=== PATIENT | female | born 1965 | race Caucasian/White ===

== ENCOUNTER 2018-06-22 18:06 | Emergency (ER) | payer MEDICAID, OTHER ==
[~2018-06-22] VITALS: Ht 162.6 cm; Wt 72.6 kg
[2018-06-22 18:13] VITALS: BP_SYST 140
[2018-06-22] MEDS ORDERED: KETOROLAC TROMETHAMINE 60 MG/2 ML VIAL IM ONE (18:30)
[2018-06-22 19:06] LABS: BARBITURATE, URINE NEGATIVE (NEG <=200); URINE AMPHETAMINE POSITIVE (NEG <=500)
[2018-06-22 19:07] LABS: BENZODIAZEPINE, URINE NEGATIVE (NEG <=150); CANNABINOID, URINE POSITIVE (NEG <=50); COCAINE, URINE NEGATIVE (NEG <=150); METHAMPHETAMINES SCREEN,URINE POSITIVE (NEG <=500); OPIATE, URINE NEGATIVE (NEG <=100); PHENCYCLIDINE SCREEN,URINE NEGATIVE (NEG <=25); UR TRICYCLIC ANTIDEPRESSANTS NEGATIVE (NEG <=300); URINE METHADONE NEGATIVE (NEG <=200); URINE OXYCODONE SCREEN NEGATIVE (NEG <=100); URINE PROPOXYPHENE SCREEN NEGATIVE (NEG <=300)
[2018-06-22 19:50] VITALS: BP_SYST 130
== END 2018-06-22 19:50 | disposition home or self-care (01) ==
LOC: SED 18:06
DX: N61.0 Mastitis without abscess (principal); R03.0 Elevated blood-pressure reading, without diagnosis of hypertension; F17.210 Nicotine dependence, cigarettes, uncomplicated; Z71.6 Tobacco abuse counseling; V29.9XXA Motorcycle rider (driver) (passenger) injured in unspecified traffic accident, initial encounter; Y93.89 Activity, other specified; Y92.410 Unspecified street and highway as the place of occurrence of the external cause; Y99.8 Other external cause status
CPT/HCPCS: 71045; 71100; 80307; 81025; 96372; 99284; J1885

== ENCOUNTER 2019-02-09 21:38 | Emergency (ER) | payer MEDICAID ==
[~2019-02-09] VITALS: Ht 160 cm; Wt 72.6 kg
[2019-02-09 21:58] VITALS: BP_SYST 131
--- NOTE | 2019-02-09 22:10 | NUR ---
Patient triaged and placed in waiting room. VSS and patient appears in no acute distress at this time. Accompanied by self , awaiting available bed, and MD notified of need for MSE.Report given to Tasha LEZAMA
--- NOTE | 2019-02-10 02:05 | NUR ---
Patient called for the first time for bed placement, patient not found in ER hallway, ER lobby, or ER entrance. aware.
--- NOTE | 2019-02-10 02:10 | NUR ---
Patient called for the second time for bed placement, patient not found in ER hallway, ER lobby, or ER entrance. aware.
--- NOTE | 2019-02-10 02:15 | NUR ---
Patient called for the third time for bed placement, patient not found in ER hallway, ER lobby, or ER entrance. aware.
== END 2019-02-10 02:15 | disposition left against medical advice (07) ==
LOC: SED 21:38
DX: S00.11XA Contusion of right eyelid and periocular area, initial encounter (principal); Z53.21 Procedure and treatment not carried out due to patient leaving prior to being seen by health care provider; V29.9XXA Motorcycle rider (driver) (passenger) injured in unspecified traffic accident, initial encounter; Y93.89 Activity, other specified; Y92.410 Unspecified street and highway as the place of occurrence of the external cause; Y99.8 Other external cause status